=== PATIENT | female | born 1980 | race Two or more races ===

== ENCOUNTER 2020-10-24 14:20 | Observation (INO) | payer MEDICAID ==
[2020-10-24] MEDS ORDERED: PREN-96 PO (15:16)
[2020-11-14] MEDS ORDERED: METF-370 PO (09:48)
== END 2020-10-24 16:15 | disposition home or self-care (01) ==
LOC: LDRP 14:20
PROVIDERS: ADMIT Specialist; ATTEND Specialist
DX: O24.419 Gestational diabetes mellitus in pregnancy, unspecified control (principal); O09.523 Supervision of elderly multigravida, third trimester; Z3A.31 31 weeks gestation of pregnancy
CPT/HCPCS: 59025; 76818; 81002; 82948; 82962; 94760; G0378

== ENCOUNTER 2020-10-27 08:40 | Observation (INO) | payer MEDICAID ==
[~2020-10-27 08:40] MED LIST: PREN-96 PO
== END 2020-10-27 10:40 | disposition home or self-care (01) ==
LOC: LDRP 08:40
PROVIDERS: ADMIT Obstetrics & Gynecology; ATTEND Obstetrics & Gynecology
DX: O24.410 Gestational diabetes mellitus in pregnancy, diet controlled (principal); O09.513 Supervision of elderly primigravida, third trimester; Z3A.32 32 weeks gestation of pregnancy
CPT/HCPCS: 59025; 76818; 81002; 82948; 82962; G0378

== ENCOUNTER 2020-11-03 10:39 | Observation (INO) | payer MEDICAID | END 2020-11-03 14:57 | disposition home or self-care (01) | LOC: LDRP 13:29 | PROVIDERS: ADMIT Specialist; ATTEND Specialist | DX: O24.419 Gestational diabetes mellitus in pregnancy, unspecified control (principal); O09.523 Supervision of elderly multigravida, third trimester; O32.2XX0 Maternal care for transverse and oblique lie, not applicable or unspecified; Z3A.32 32 weeks gestation of pregnancy | CPT/HCPCS: 59025; 76818; 81002; 82948; 82962; G0378 ==

== ENCOUNTER 2020-11-10 09:31 | Observation (INO) | payer MEDICAID ==
[~2020-11-10] VITALS: Ht 152.4 cm; Wt 72.6 kg
[2020-11-10] MEDS ORDERED: TERBUTALINE SULFATE 1 MG/ML 1ML VIAL SC SCH (15:30)
[2020-11-14] MEDS ORDERED: METF-370 PO (09:48)
== END 2020-11-10 16:12 | disposition home or self-care (01) ==
LOC: LDRP 14:02
PROVIDERS: ADMIT Obstetrics & Gynecology; ATTEND Obstetrics & Gynecology
DX: O24.419 Gestational diabetes mellitus in pregnancy, unspecified control (principal); O09.513 Supervision of elderly primigravida, third trimester; Z3A.34 34 weeks gestation of pregnancy
CPT/HCPCS: 59025; 76818; 81002; 82948; 82962; 94760; 96372; G0378; J3105

== ENCOUNTER 2020-11-12 20:10 | Observation (INO) | payer MEDICAID ==
[~2020-11-12] VITALS: Ht 152.4 cm; Wt 78.9 kg
[2020-11-12] MEDS ORDERED: LACTATED RINGER'S 1,000 ML IV SCH (20:45)
[2020-11-12] MEDS ORDERED: LACTATED RINGER'S 1,000 ML IV ONE (20:45)
[2020-11-12] MEDS: TERBUTALINE SULFATE 1 MG/ML 1ML VIAL SC SCH (21:06)
[2020-11-12] MEDS ORDERED: NIFEdipine 10 MG CAP PO ONE ×2 (21:15→22:45)
[2020-11-12] MEDS ORDERED: NIF10C PO (23:48)
[2020-11-13] MEDS: TERBUTALINE SULFATE 1 MG/ML 1ML VIAL SC SCH (04:10)
== END 2020-11-12 23:55 | disposition home or self-care (01) ==
LOC: LDRP 20:10
PROVIDERS: ADMIT Obstetrics & Gynecology; ATTEND Obstetrics & Gynecology
DX: O60.03 Preterm labor without delivery, third trimester (principal); O24.419 Gestational diabetes mellitus in pregnancy, unspecified control; Z3A.34 34 weeks gestation of pregnancy
CPT/HCPCS: 59025; 81002; 82948; 82962; 96372; G0378; J3105

== ENCOUNTER 2020-11-14 09:11 | Observation (INO) | payer MEDICAID ==
[~2020-11-14] VITALS: Ht 152.4 cm; Wt 68.0 kg
[~2020-11-14 09:11] MED LIST changes: +NIF10C PO
[2020-11-14] MEDS ORDERED: METF-370 PO ×2 (09:48)
== END 2020-11-14 10:15 | disposition home or self-care (01) ==
LOC: LDRP 09:11
PROVIDERS: ADMIT Obstetrics & Gynecology; ATTEND Obstetrics & Gynecology
DX: O24.415 Gestational diabetes mellitus in pregnancy, controlled by oral hypoglycemic drugs (principal); O60.03 Preterm labor without delivery, third trimester; Z79.84 Long term (current) use of oral hypoglycemic drugs; Z3A.34 34 weeks gestation of pregnancy
CPT/HCPCS: 59025; 76818; 81002; 82948; 82962; 94760; G0378